=== PATIENT | male | born 1980 | race African-American/Black ===

== ENCOUNTER 2019-03-18 09:03 | Day surgery (SDC) | payer OTHER ==
[2019-03-16 17:23] LABS: PLATELET COUNT 250 x10^3mcL (130-400)
[2019-03-16 17:25] LABS: RED CELL DISTRIBUTION WIDTH 15.8 % (11.5-14.5)
[2019-03-16 17:33] LABS: ALBUMIN 3.5 g/dL (3.4-5.0); BILIRUBIN TOTAL 1.66 mg/dL (0.20-1.00); CALCIUM 8.6 mg/dL (8.5-10.1); CARBON DIOXIDE 26.2 mmol/L (21-32)
[2019-03-16 18:04] LABS: TOTAL PROTEIN, SERUM 8.8 g/dL (6.4-8.2)
[2019-03-16 18:05] LABS: CREATININE SERUM 14.8 mg/dL (0.7-1.3); POTASSIUM SERUM 5.7 mmol/L (3.5-5.1)
[~2019-03-18] VITALS: Ht 172.7 cm; Wt 67.1 kg
[2019-03-18 10:44] VITALS: BP 160/108
[2019-03-18 15:21] VITALS: BP 157/105
== END 2019-03-18 14:55 | disposition home or self-care (01) ==
LOC: DS 09:03 → OR 11:00 → DS 14:55
PROVIDERS: Surgery
DX: I12.0 Hypertensive chronic kidney disease with stage 5 chronic kidney disease or end stage renal disease (principal); E11.22 Type 2 diabetes mellitus with diabetic chronic kidney disease; N18.6 End stage renal disease; Z79.899 Other long term (current) drug therapy; Z88.0 Allergy status to penicillin
CPT/HCPCS: 82962; J1170; J1644; J1815; J2001; J2405; J2704; J3010; J3490; J7120

== ENCOUNTER 2019-04-06 05:19 | Emergency (ER) | payer OTHER ==
[~2019-04-06] VITALS: Ht 172.7 cm; Wt 69.9 kg
[2019-04-06 05:24] VITALS: Ht 172.7 cm; Wt 69.9 kg
[2019-04-06 07:21] VITALS: BP 145/95
== END 2019-04-06 08:48 | disposition home or self-care (01) ==
LOC: ED 05:19
DX: T81.30XA Disruption of wound, unspecified, initial encounter (principal); Z99.2 Dependence on renal dialysis; I10 Essential (primary) hypertension; E11.9 Type 2 diabetes mellitus without complications; Z88.0 Allergy status to penicillin

== ENCOUNTER → 2019-05-13 | Day surgery (SDC) | payer OTHER ==
[~2019-05-13] VITALS: Ht 172.7 cm; Wt 68.0 kg
[2019-05-13 09:37] VITALS: BP 154/99
[2019-05-13 17:45] VITALS: BP 140/90
== END | disposition home or self-care (01) ==
LOC: DS 09:06 → OR 11:00 → DS 12:00
DX: T82.898A Other specified complication of vascular prosthetic devices, implants and grafts, initial encounter (principal); E11.22 Type 2 diabetes mellitus with diabetic chronic kidney disease; I12.0 Hypertensive chronic kidney disease with stage 5 chronic kidney disease or end stage renal disease; N18.6 End stage renal disease; D64.9 Anemia, unspecified; F41.9 Anxiety disorder, unspecified; Z88.0 Allergy status to penicillin; Z99.2 Dependence on renal dialysis; Z79.4 Long term (current) use of insulin; Z79.899 Other long term (current) drug therapy; Z98.890 Other specified postprocedural states
CPT/HCPCS: 82962; J1170; J1644; J1815; J2001; J2405; J2704; J3010; J3490; J7120